=== PATIENT | female | born 1980 | race Caucasian/White ===

== ENCOUNTER 2016-05-18 08:07 | Emergency (ER) | payer MEDICAID, OTHER ==
--- NOTE | 2016-05-18 08:30 | UC ---
Ear Complaint HPI - HPI Summary HPI Summary: complaint of right ear pain that started 3 daysa go now both ears are painful nasal congestion and denies cough mild sore throat denies fever and chills several cold sores on left side of mouth for 2 days took some tylenol without relief yesterday - History of Current Complaint Chief Complaint: UCGeneralIllness Stated Complaint: EAR COMPLAINT Time Seen by Provider: 05/18/16 08:10 Hx Obtained From: Patient Hx Last Menstrual Period: 05/04/16 - Allergies/Home Medications Allergies/Adverse Reactions: Allergies Allergy/AdvReac Type Severity Reaction Status Date / Time Citalopram [From Celexa] AdvReac Intermediate "negative Verified 12/09/15 18:36 thoughts", angry seasonal Allergy Intermediate runny Uncoded 06/28/14 16:51 nose, congestion PMH/Surg Hx/FS Hx/Imm Hx Previously Healthy: Yes Endocrine History Of: Denies: Diabetes Cardiovascular History Of: Denies: Hypertension, Pacemaker/ICD Neurological History Of: Reports: Migraine - Surgical History Surgical History: Yes Surgery Procedure, Year, and Place: 2 c-sections (2006,2008), gastric bypass ( June 2010), lasik eye surgery, ParaGard IUD - Family History Known Family History: Negative: Cardiac Disease, Hypertension, Diabetes - Social History Occupation: Unemployed Lives: With Family Alcohol Use: None Substance Use Type: Heroin 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 Smoking Status (MU): Never Smoked Tobacco Have You Smoked in the Last Year: No Review of Systems Constitutional: Negative Skin: Negative Eyes: Negative ENT: Sore Throat, Ear Ache, Nasal Discharge Respiratory: Negative Cardiovascular: Negative Gastrointestinal: Negative Genitourinary: Negative Motor: Negative Neurovascular: Negative Musculoskeletal: Negative Neurological: Negative Psychological: Negative All Other Systems Reviewed And Are Negative: Yes Physical Exam Triage Information Reviewed: Yes Appearance: No Pain Distress, Well-Nourished Vital Signs: Initial Vital Signs Temp 99.0 F 05/18/16 08:15 Pulse 82 05/18/16 08:15 Resp 16 05/18/16 08:15 BP 135/78 05/18/16 08:15 Pulse Ox 99 05/18/16 08:15 Vital Signs Reviewed: Yes Eyes: Positive: Conjunctiva Clear ENT: Positive: Pharyngeal erythema, Nasal congestion, Nasal drainage, TM bulging , TM red - bilaterally, Tonsillar swelling, Tonsillar exudate Neck: Positive: No Lymphadenopathy Respiratory: Positive: Lungs clear, Normal breath sounds, No respiratory distress Cardiovascular: Positive: RRR, No Murmur, Pulses Normal Abdomen Description: Positive: Nontender, Soft Bowel Sounds: Positive: Present Musculoskeletal: Positive: No Edema Neurological: Positive: Alert Psychological Exam: Normal Skin Exam: Normal Ear Complaint Course/Dx - Course Course Of Treatment: exam completed. will treat for otitis media d/t effuions bilaterally - Differential Dx/Diagnosis Differential Diagnosis/HQI/PQRI: Otitis Media, Other - tonsilitis Provider Diagnoses: bilateral otitis media, tonsilitis Discharge - Discharge Plan Condition: Stable Disposition: HOME Prescriptions: Amoxicillin CAP* [Amoxicillin 500 MG CAP*] 500 mg PO Q12H #20 cap Ibuprofen TAB* [Motrin TAB* 800 MG] 800 mg PO TID #30 tab Patient Education Materials: Otitis Media (ED), Tonsillitis (ED) Additional Instructions: Start antibitoic as directed Increase fluids and rest Take acetaminophen or ibuprofen for fever or pain Please review your discharge instructions. If your symptoms do not improve please call your primary care provider or return to urgent care
[2016-05-18 08:44] VITALS: BP 135/78
== END 2016-05-18 08:48 | disposition home or self-care (01) ==
LOC: UCCORT 08:07
DX: H66.93 Otitis media, unspecified, bilateral (principal); J03.90 Acute tonsillitis, unspecified; Z88.8 Allergy status to other drugs, medicaments and biological substances; Z98.84 Bariatric surgery status
CPT/HCPCS: 99212; G0463

== ENCOUNTER 2016-08-11 21:27 | Emergency (ER) | payer OTHER ==
[2016-08-11 21:42] VITALS: BP 167/103
--- NOTE | 2016-08-11 22:34 | UC ---
Syncope/New Syncope HPI - History Of Current Complaint Chief Complaint: UCDizziness Stated Complaint: DIZZY,LIGHT HEADED Time Seen by Provider: 08/11/16 22:01 Hx Obtained From: Patient Hx Last Menstrual Period: 07/29/16 ?: No Onset/Duration: Sudden Onset, Lasting Minutes - 5, Resolved Activity At Onset: Unknown Timing: Intermittent Episode Lasting - 5 Frequency: Episodes x___ - 1, Episodes Lasting ____ (in Mins/Days/Weeks/Years) - 5 Context: Unwitnessed, Other - felt lightheaded , fell on her bathroom , Associated Head Trauma: No Aggravating Factor(s): Nothing Alleviating Factor(s): Nothing Associated Signs And Symptoms: Positive: Headache, Lightheadedness, Other - recent hx of viral illness/ rash for one day. Negative: AMS, Chest Pain, Decreased Oral Intake, Diarrhea, Diaphoresis, Dizzy, GI Blood Loss, Head Trauma (Remote), Head Trauma (Recent), Numbness, Pain, Palpitations, Seizure, Shortness Of Breath, Vomiting - Allergies/Home Medications Allergies/Adverse Reactions: Allergies Allergy/AdvReac Type Severity Reaction Status Date / Time Citalopram [From Celexa] AdvReac Intermediate "negative Verified 08/11/16 21:42 thoughts", angry seasonal Allergy Intermediate runny Uncoded 08/11/16 21:42 nose, congestion Home Medications: Home Medications Famotidine TAB* [Pepcid 20 MG TAB*] 20 mg PO DAILY 08/11/16 [History Confirmed 08/11/16] Fexofenadine (NF) [Rabia (NF)] 60 mg PO DAILY 08/11/16 [History Confirmed 03/29] Hydrocortisone 1% CREAM* [Hytone Cream 1%*] 1 applic TOPICAL BID 08/11/16 [ History Confirmed 08/11/16] diPHENhydraMINE PO* [Benadryl PO 50 MG CAP*] 50 mg PO ONCE 08/11/16 [History Confirmed 08/11/16] predniSONE TAB* [Deltasone TAB*] 40 mg PO DAILY 08/11/16 [History Confirmed 03/29] PMH/Surg Hx/FS Hx/Imm Hx Neurological History: Migraine Psychological History: Anxiety, Depression - Surgical History Surgical History: Yes Surgery Procedure, Year, and Place: 2 c-sections (2006,2008), gastric bypass ( June 2010), lasik eye surgery, ParaGard IUD - Family History Known Family History: Negative: Cardiac Disease, Hypertension, Diabetes - Social History Alcohol Use: None Substance Use Type: Heroin 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 Smoking Status (MU): Never Smoked Tobacco Have You Smoked in the Last Year: No Review of Systems Constitutional: Chills, Fatigue Skin: Rash Eyes: Negative ENT: Negative Respiratory: Negative Cardiovascular: Negative Neurological: Headache, Weakness Psychological: Negative All Other Systems Reviewed And Are Negative: Yes Physical Exam Triage Information Reviewed: Yes Appearance: Well-Appearing, No Pain Distress, Well-Nourished Vital Signs: Initial Vital Signs Temp 97.8 F 08/11/16 21:35 Pulse 103 08/11/16 21:35 Resp 20 08/11/16 21:35 BP 167/103 08/11/16 21:35 Pulse Ox 99 08/11/16 21:35 Vital Signs Reviewed: Yes Eyes: Positive: Conjunctiva Clear ENT: Positive: Normal ENT inspection, Hearing grossly normal, Pharynx normal, Pharyngeal erythema Neck exam: Normal Neck: Positive: Supple, Nontender, No Lymphadenopathy Respiratory Exam: Normal Respiratory: Positive: Chest non-tender, Lungs clear, Normal breath sounds Cardiovascular: Positive: No Murmur, Tachycardia Abdominal Exam: Normal Abdomen Description: Positive: Nontender. Negative: CVA Tenderness (R), CVA Tenderness (L), Distended, Guarding Bowel Sounds: Positive: Present Musculoskeletal Exam: Normal Musculoskeletal: Positive: Strength Intact, ROM Intact, No Edema Neurological: Positive: Alert, Muscle Tone Normal Skin: Positive: rashes - papulary rash generalized UC Physical Exam Vital Signs On Initial Exam: Initial Vitals Temp Pulse Resp BP Pulse Ox 97.8 F 103 20 167/103 99 08/11/16 21:35 08/11/16 21:35 08/11/16 21:35 08/11/16 21:35 08/11/16 21:35 - Neurological Exam Neurological: Normal, Sensory/Motor Intact, Alert, Oriented to Person Place, Time, CN Intact II-III, Reflexes Intact, Normal Gait, Facial Symmetry, Speech Normal Syncope Course/Dx - Differential Dx/Diagnosis Provider Diagnoses: syncope. viral illness Discharge - Discharge Plan Condition: Stable Disposition: HOME Patient Education Materials: Syncope (ED), Viral Syndrome (ED) Referrals: Abhinav Pedroza DO [Primary Care Provider] - 5 Days Additional Instructions: stop the prednisone cont. with topical hydrocortisone cream
== END 2016-08-11 22:36 | disposition home or self-care (01) ==
LOC: UCCORT 21:27
DX: R55 Syncope and collapse (principal); B34.9 Viral infection, unspecified; F11.10 Opioid abuse, uncomplicated
CPT/HCPCS: 81003; 99211; G0463

== ENCOUNTER 2016-12-05 21:28 | Emergency (ER) | payer OTHER ==
--- NOTE | 2016-12-05 21:41 | UC ---
Hand/Wrist HPI - HPI Summary HPI Summary: PATIENT PRESENTS WITH LEFT HAND PAIN SECONDARY TO BLUNT TRAUMA SHE LEFT AFTER BEING SEEN BEFORE A XRAY COULD BE DONE - History Of Current Complaint Stated Complaint: LEFT HAND PAIN Hx Obtained From: Patient Hx Last Menstrual Period: 07/29/16 Onset/Duration: Sudden Onset Severity Initially: Moderate Severity Currently: Moderate Pain Scale Used: 0-10 Numeric - 6 - Allergies/Home Medications Allergies/Adverse Reactions: Allergies Allergy/AdvReac Type Severity Reaction Status Date / Time Citalopram [From Celexa] AdvReac Intermediate "negative Verified 12/05/16 21:43 thoughts", angry seasonal Allergy Intermediate runny Uncoded 12/05/16 21:43 nose, congestion Home Medications: Home Medications Acetaminophen [Acetaminophen Extra Stren] 1,000 mg PO Q4H PRN 12/05/16 [History Confirmed 12/05/16] Ferrous Sulfate TAB* 325 mg PO BID 12/05/16 [History Confirmed 12/05/16] Ibuprofen TAB* [Advil TAB*] 800 mg PO Q6H PRN 12/05/16 [History Confirmed ] PMH/Surg Hx/FS Hx/Imm Hx Previously Healthy: Yes - Surgical History Surgical History: Yes Surgery Procedure, Year, and Place: 2 c-sections (2006,2008), gastric bypass ( June 2010), lasik eye surgery, ParaGard IUD - Family History Known Family History: Negative: Cardiac Disease, Hypertension, Diabetes - Social History Alcohol Use: None Substance Use Type: Heroin 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 Smoking Status (MU): Never Smoked Tobacco Have You Smoked in the Last Year: No Review of Systems Constitutional: Negative Skin: Negative Eyes: Negative ENT: Negative Respiratory: Negative Cardiovascular: Negative Gastrointestinal: Negative Genitourinary: Negative Motor: Negative Neurovascular: Negative Musculoskeletal: Other: - LEFT HAND PAIN Neurological: Negative Psychological: Negative All Other Systems Reviewed And Are Negative: Yes Physical Exam Triage Information Reviewed: Yes Eye Exam: Normal ENT Exam: Normal Dental Exam: Normal Neck exam: Normal Neck: Positive: 1 Respiratory Exam: Normal Cardiovascular Exam: Normal Abdominal Exam: Normal Musculoskeletal: Positive: Other: - LEFT HAND PAIN Neurological Exam: Normal Psychological Exam: Normal Skin Exam: Normal Hand/Wrist Course/Dx - Differential Dx/Diagnosis Provider Diagnoses: LEFT HAND PAIN Discharge - Discharge Plan Condition: Stable Disposition: OTHER Discharge Disposition Comment: LEFT BEFORE XRAY WAS DONE Patient Education Materials: Hand Sprain (ED) Referrals: Katie RIZZO,Naina Castaneda [Primary Care Provider] -
[2016-12-05 21:43] VITALS: BP 135/76
== END 2016-12-05 22:02 ==
LOC: UCCORT 21:28
DX: M79.642 Pain in left hand (principal)
CPT/HCPCS: 99212; G0463

== ENCOUNTER 2018-03-22 17:18 | Emergency (ER) | payer OTHER ==
[2018-03-22 17:49] VITALS: BP 127/84
--- NOTE | 2018-03-22 18:26 | UC ---
Upper Extremity HPI - HPI Summary HPI Summary: Patient fell on the ice this morning at 850 am. she slipped, landing on her writs wrist, hyperextend, now it is sore, ROM limited and bruising on the ant. aspect of wrist - History of Current Complaint Chief Complaint: UCUpperExtremity Stated Complaint: FALL,RIGHT WRIST INJURY Time Seen by Provider: 03/22/18 18:08 Hx Obtained From: Patient Hx Last Menstrual Period: 02/26/18 ?: No Onset/Duration: Sudden Onset, Lasting Hours Severity Initially: Moderate Severity Currently: Moderate Pain Intensity: 4 Character: Aching, Throbbing Aggravating Factor(s): Flexion, Extension, Internal/External Rotation Associated Signs And Symptoms: Positive: Swelling, Bruising - Allergies/Home Medications Allergies/Adverse Reactions: Allergies Allergy/AdvReac Type Severity Reaction Status Date / Time citalopram [From Celexa] AdvReac "negative Verified 03/22/18 17:50 thoughts, anger" PMH/Surg Hx/FS Hx/Imm Hx Previously Healthy: Yes - Surgical History Surgical History: Yes Surgery Procedure, Year, and Place: 2 c-sections (2006,2008), gastric bypass ( June 2010), lasik eye surgery - Family History Known Family History: Negative: Cardiac Disease, Hypertension, Diabetes - Social History Alcohol Use: None Substance Use Type: Heroin 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 Smoking Status (MU): Never Smoked Tobacco Have You Smoked in the Last Year: No Review of Systems All Other Systems Reviewed And Are Negative: Yes Constitutional: Positive: Negative Skin: Positive: Bruising Eyes: Positive: Negative ENT: Positive: Negative Respiratory: Positive: Negative Cardiovascular: Positive: Negative Gastrointestinal: Positive: Negative Genitourinary: Positive: Negative Motor: Positive: Negative Neurovascular: Positive: Negative Musculoskeletal: Positive: Arthralgia, Decreased ROM, Edema, Myalgia Neurological: Positive: Negative Psychological: Positive: Negative Is Patient Immunocompromised?: No Physical Exam Triage Information Reviewed: Yes Appearance: Well-Appearing, Well-Nourished, Pain Distress Vital Signs: Initial Vital Signs Temp 98.4 F 03/22/18 17:43 Pulse 92 03/22/18 17:43 Resp 16 03/22/18 17:43 BP 127/84 03/22/18 17:43 Pulse Ox 100 03/22/18 17:43 Vital Signs Reviewed: Yes Eye Exam: Normal ENT Exam: Normal Dental Exam: Normal Neck exam: Normal Respiratory Exam: Normal Respiratory: Positive: Chest non-tender, Lungs clear, Normal breath sounds Cardiovascular Exam: Normal Cardiovascular: Positive: RRR, No Murmur, Pulses Normal Abdominal Exam: Normal Bowel Sounds: Positive: Present Musculoskeletal: Positive: Strength Intact, ROM Intact - but painful, Edema @ - mild around the joint Neurological Exam: Normal Psychological Exam: Normal Skin Exam: Normal Upper Extremity Course/Dx - Course Course Of Treatment: hx obtained, exam performed, meds reviewed, xray reviewed, radiology read unavailable. no obvious deformity or fracture, placed in spint and will advise if any fracture read by radiology. follow up if not improving over the next few days. - Differential Dx/Diagnosis Differential Diagnosis/HQI/PQRI: Contusion, Laceration, Strain, Sprain Provider Diagnosis: Hyperextension injury Discharge - Sign-Out/Discharge Documenting (check all that apply): Patient Departure All imaging exams completed and their final reports reviewed: No - Discharge Plan Condition: Stable Disposition: HOME Patient Education Materials: Wrist Injury (ED) Referrals: Katie RIZZO,Naina Castaneda [Primary Care Provider] - Ze Pierre MD [Medical Doctor] - Additional Instructions: 1. Use the jannet for swelling reduction and the splint for support 2. Ibuprofen or tylenol for pain 3. If not improving in the next 2-3 days follow up with the orthopedic. - Billing Disposition and Condition Condition: STABLE Disposition: Home
--- NOTE | 2018-03-23 08:02 | ED ---
Progress - Progress Note Progress Note: final xray reading reviewed and negative Course/Dx - Course Course Of Treatment: hx obtained, exam performed, meds reviewed, xray reviewed, radiology read unavailable. no obvious deformity or fracture, placed in spint and will advise if any fracture read by radiology. follow up if not improving over the next few days. - Diagnoses Provider Diagnoses: Hyperextension injury Discharge - Sign-Out/Discharge Documenting (check all that apply): Patient Departure All imaging exams completed and their final reports reviewed: Yes - Discharge Plan Condition: Stable Disposition: HOME Patient Education Materials: Wrist Injury (ED) Referrals: Ze Pierre MD [Medical Doctor] - Katie RIZZO,Naina Castaneda [Primary Care Provider] - Additional Instructions: 1. Use the jannet for swelling reduction and the splint for support 2. Ibuprofen or tylenol for pain 3. If not improving in the next 2-3 days follow up with the orthopedic. - Billing Disposition and Condition Condition: STABLE Disposition: Home
== END 2018-03-22 19:13 | disposition home or self-care (01) ==
LOC: UCCORT 17:18
DX: S69.81XA Other specified injuries of right wrist, hand and finger(s), initial encounter (principal); W00.0XXA Fall on same level due to ice and snow, initial encounter; Y92.9 Unspecified place or not applicable; Z88.8 Allergy status to other drugs, medicaments and biological substances
CPT/HCPCS: 84702; 99213; G0463

== ENCOUNTER 2018-07-02 08:43 | Emergency (ER) | payer OTHER ==
[2018-07-02 09:20] VITALS: BP 125/86
--- NOTE | 2018-07-02 10:01 | UC ---
UC General HPI - HPI Summary HPI Summary: SORE THROAT WITH SWOLLEN TONSILS AND EAR ACHES X 5 DAYS. - History of Current Complaint Chief Complaint: UCGeneralIllness Stated Complaint: SORE THROAT,BILAT EAR CONCERN Time Seen by Provider: 07/02/18 09:55 Hx Obtained From: Patient Hx Last Menstrual Period: 02/26/18 Onset/Duration: Gradual Onset Timing: Constant Pain Intensity: 6 Associated Signs & Symptoms: Positive: Fever - Allergy/Home Medications Allergies/Adverse Reactions: Allergies Allergy/AdvReac Type Severity Reaction Status Date / Time citalopram [From Celexa] AdvReac "negative Verified 07/02/18 09:19 thoughts, anger" PMH/Surg Hx/FS Hx/Imm Hx - Additional Past Medical History Additional PMH: ALLERGIES, 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 - Surgical History Surgical History: Yes Surgery Procedure, Year, and Place: 2 c-sections (2006,2008), gastric bypass ( June 2010), lasik eye surgery - Family History Known Family History: Negative: Cardiac Disease, Hypertension, Diabetes - Social History Alcohol Use: None Substance Use Type: None 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 Smoking Status (MU): Never Smoked Tobacco Have You Smoked in the Last Year: No Review of Systems All Other Systems Reviewed And Are Negative: Yes Constitutional: Positive: Fever ENT: Positive: Sore Throat, Ear Ache Is Patient Immunocompromised?: No Physical Exam Triage Information Reviewed: Yes Appearance: Well-Appearing Vital Signs: Initial Vital Signs Temp 97.7 F 07/02/18 09:17 Pulse 86 07/02/18 09:17 Resp 16 07/02/18 09:17 BP 125/86 07/02/18 09:17 Pulse Ox 100 07/02/18 09:17 Vital Signs Reviewed: Yes Eyes: Positive: Conjunctiva Clear ENT: Positive: Pharyngeal erythema, TMs normal, Tonsillar swelling - SLIGHT, Tonsillar exudate - SLIGHT, Uvula midline. Negative: Nasal congestion, Nasal drainage, Trismus, Muffled voice, Hoarse voice Neck: Positive: Supple, Tenderness @ - PERITONSILAR NODES, Enlarged Nodes @ - PERITONSILAR Respiratory: Positive: Lungs clear, Normal breath sounds Cardiovascular: Positive: RRR Abdomen Description: Positive: Nontender, No Organomegaly, Soft Bowel Sounds: Positive: Present Musculoskeletal: Positive: ROM Intact Neurological: Positive: Alert Psychological: Positive: Age Appropriate Behavior Skin Exam: Normal Course/Dx - Course Course Of Treatment: RAPID STREP IS POSITIVE - Diagnoses Provider Diagnosis: Strep throat Discharge - Sign-Out/Discharge Documenting (check all that apply): Patient Departure All imaging exams completed and their final reports reviewed: No Studies - Discharge Plan Condition: Stable Disposition: HOME Prescriptions: Amoxicillin PO (*) [Amoxicillin 875 MG (*)] 875 mg PO BID 10 Days #20 tab Patient Education Materials: Strep Throat (DC) Forms: *Gen. Provider Communication Referrals: Katie RIZZO,Naina Castaneda [Primary Care Provider] - 7 Days - Billing Disposition and Condition Condition: STABLE Disposition: Home - Attestation Statements Provider Attestation: I was available for consult. This patient was seen by the [facility]. The patient was not presented to, seen by, or examined by me. -Syed
== END 2018-07-02 10:08 | disposition home or self-care (01) ==
LOC: UCCORT 08:43
DX: J02.0 Streptococcal pharyngitis (principal); H92.03 Otalgia, bilateral; Z88.8 Allergy status to other drugs, medicaments and biological substances
CPT/HCPCS: 87651; 99212; G0463